=== PATIENT | male | born 1960 | race Caucasian/White ===

== ENCOUNTER 2021-02-10 10:23 | Inpatient (IN) | payer OTHER ==
[~2021-02-10 10:23] MED LIST: ALLEGRA-D 12 H1 EACH PO; ATROVENT HFA12.9 GM INH; CEFDINIR300 MG PO; MUCINEX 600MG600 MG PO; PROVENTIL HFA6.7 GM INH
[2021-02-10] MEDS ORDERED: DICLOFENAC SODI75 MG PO (11:36)
[2021-02-10 15:58] LABS: BASOPHIL 0.4 % (0-2); EOSINOPHIL 0.5 % (0-5); HCT 51.9 % (42.0-52.0); HGB 17.3 g/dl (13.2-18.0); LYMPHOCYTE 13.2 % (15-48); MCH 29.4 pg (25.0-31.0); MCHC 33.3 g/dL (32.0-36.0); MCV 88.3 fL (78.0-100.0); MONOCYTE 6.4 % (0-12); MPV 9.6 fL (6.0-9.5); NRBC 0; PLT 366 K/uL (150-400); RBC 5.88 M/uL (4.70-6.00); RDW 12.9 % (11.5-14.0); WBC 13.5 K/uL (4.0-10.5)
[2021-02-10 16:15] LABS: ALBUMIN 3.6 g/dL (3.4-5.0); BILIRUBIN - TOTAL 0.3 mg/dL (0.2-1.0); BUN/CREAT RATIO (CALC) 33.3 RATIO; CREATININE 0.72 mg/dL (0.67-1.17); GLOBULIN (CALCULATION) 5.6 g/dL; POTASSIUM 4.4 mmol/L (3.5-5.1); TOTAL PROTEIN 9.2 g/dL (6.4-8.2)
[2021-02-10] MEDS ORDERED: CARDIZEM CD120 MG PO (17:32)
[2021-02-11 01:31] LABS: BILIRUBIN NEGATIVE (NEGATIVE); BLOOD NEGATIVE Ery/uL (NEGATIVE); CLARITY CLEAR (CLEAR); COLOR YELLOW (YELLOW); GLUCOSE (U) NORMAL (NORMAL); LEUKOCYTES NEGATIVE Leu/uL (NEGATIVE); NITRITE NEGATIVE (NEGATIVE); PROTEIN NEGATIVE (NEGATIVE); SPECIFIC GRAVITY >=1.030 (1.001-1.030); UROBILINOGEN 0.2 mg/dL (0.2-1.0)
[2021-02-11 06:07] LABS: BASOPHIL 1.2 % (0-2); EOSINOPHIL 6.7 % (0-5); HCT 47.7 % (42.0-52.0); HGB 15.7 g/dl (13.2-18.0); LYMPHOCYTE 23.8 % (15-48); MCH 29.2 pg (25.0-31.0); MCHC 32.9 g/dL (32.0-36.0); MCV 88.7 fL (78.0-100.0); MONOCYTE 8.1 % (0-12); MPV 9.8 fL (6.0-9.5); NEUTROPHIL 59.9 % (41-80); NRBC 0; PLT 296 K/uL (150-400); RBC 5.38 M/uL (4.70-6.00); WBC 10.7 K/uL (4.0-10.5)
[2021-02-11 06:30] LABS: BUN/CREAT RATIO (CALC) 28.6 RATIO; CREATININE 0.63 mg/dL (0.67-1.17); POTASSIUM 4.5 mmol/L (3.5-5.1)
[2021-02-11] MEDS ORDERED: PERCOCET 5-3251 EACH PO (10:07)
[2021-02-12 05:51] LABS: BASOPHIL 0.4 % (0-2); EOSINOPHIL 2.7 % (0-5); HGB 14.3 g/dl (13.2-18.0); LYMPHOCYTE 21.9 % (15-48); MCH 29.4 pg (25.0-31.0); MCHC 33.3 g/dL (32.0-36.0); MCV 88.5 fL (78.0-100.0); MONOCYTE 7.8 % (0-12); MPV 9.7 fL (6.0-9.5); NEUTROPHIL 66.9 % (41-80); NRBC 0; PLT 279 K/uL (150-400); RBC 4.86 M/uL (4.70-6.00); RDW 12.9 % (11.5-14.0); WBC 13.5 K/uL (4.0-10.5)
[2021-02-12 06:08] LABS: BUN/CREAT RATIO (CALC) 23.5 RATIO; CREATININE 0.68 mg/dL (0.67-1.17); POTASSIUM 4.7 mmol/L (3.5-5.1)
[2021-02-12] MEDS ORDERED: FEOSOL325 MG PO (08:23)
[2021-02-12] MEDS ORDERED: ASPIRIN81 MG PO (08:23)
--- NOTE | 2021-02-12 09:10 | NUR ---
TC TO NISHI AT [facility] [place] AT [phone] OPTION 2. SHE STATED THAT [facility] [place] WOULD ACCEPT PT. FAXED INFORMATION TO [phone]. SENT INFO TO TAMIE AT [facility] [place]. ADVISED IAN KHAN OF PT. PLAN WELL A [facility] [place]. FAX D/C SUMMARY TO [facility] [place] AT [phone].
[2021-02-12] MEDS ORDERED: ULTRA-LIGHT RO1 EACH XX (10:21)
== END 2021-02-12 11:05 | disposition home health service (06) | DRG 482 ==
LOC: FER 10:23 → FMS 15:35
PROVIDERS: Emergency Medicine; Orthopaedic Surgery; ADMIT Internal Medicine
PROC: 0QS604Z Reposition Right Upper Femur with Internal Fixation Device, Open Approach (ICD-10-PCS; principal; 2021-02-11 09:15)
DX: S72.114A Nondisplaced fracture of greater trochanter of right femur, initial encounter for closed fracture (principal); W01.0XXA Fall on same level from slipping, tripping and stumbling without subsequent striking against object, initial encounter; R00.0 Tachycardia, unspecified; E11.9 Type 2 diabetes mellitus without complications; I10 Essential (primary) hypertension; Z83.3 Family history of diabetes mellitus; Z87.891 Personal history of nicotine dependence; Z79.899 Other long term (current) drug therapy; Y93.89 Activity, other specified; Y92.63 Factory as the place of occurrence of the external cause; Y99.8 Other external cause status; Z20.822 Contact with and (suspected) exposure to COVID-19; S80.812A Abrasion, left lower leg, initial encounter; S80.811A Abrasion, right lower leg, initial encounter; S50.311A Abrasion of right elbow, initial encounter; J44.9 Chronic obstructive pulmonary disease, unspecified
CPT/HCPCS: 36415; 71045; 73501; 73502; 73700; 76000; 80048; 80053; 81003; 83036; 85025; 86850; 86900; 86901; 93005; 94010; 94640; 94667; 94668; 94760; 94762; 97162; 97166; 97530-GP; 97535; C1713; J0697; J1100; J1885; J2250; J2405; J2704; J3010; J7030; J7120; U0002